=== PATIENT | female | born 1970 | race Caucasian/White ===

== ENCOUNTER 2016-12-31 23:05 | Emergency (ER) | payer OTHER ==
[2017-01-01] MEDS ORDERED: PREDNISONE 20 MG TABLET ONE (00:52)
[2017-01-01] MEDS ORDERED: CLINDAMYCIN HCL 150 MG CAPSULE ONE (00:52)
[2017-01-01] MEDS ORDERED: HYDROCODONE/ACETAMINOPHEN 5/325MG TABLET ONE (00:52)
== END 2017-01-01 01:19 | disposition home or self-care (01) ==
LOC: ED 23:05
DX: L03.211 Cellulitis of face (principal); K08.89 Other specified disorders of teeth and supporting structures
CPT/HCPCS: 99283 ×2; A9270 ×2; J7512